=== PATIENT | female | born 1995 | race Caucasian/White ===

== ENCOUNTER 2019-02-12 12:22 | Inpatient (IN) | payer BC ==
[~2019-02-12] VITALS: Ht 162.6 cm; Wt 73.6 kg
[2019-02-12] MEDS ORDERED: PAXIL20 MG PO (12:29)
[2019-02-12] MEDS ORDERED: ATIVAN0.5 MG PO (12:29)
[2019-02-12] MEDS ORDERED: TRI SPRINTEC PO (12:30)
[2019-02-12 13:23] LABS: CALC OSMOLALITY 267 mosm/kg (275-300); CALCIUM 9.1 mg/dL (8.5-10.1); CARBON DIOXIDE 23.4 mmol/L (21.0-32.0); CHLORIDE - SERUM 100 mmol/L (98-107); CREATININE - SERUM 0.8 mg/dL (0.6-1.3); GLUCOSE 109 mg/dL (74-106); POTASSIUM - SERUM 3.3 mmol/L (3.5-5.1); SODIUM 134 mmol/L (136-145); UREA NITROGEN 11 mg/dL (7-18); eGFR NON AFRICAN AMERICAN > 90 mL/min (90-120)
[2019-02-12 13:29] LABS: INR 1.1 (0.85-1.17); PROTIME 13.7 SECONDS (11.6-15.0)
[2019-02-12 13:35] LABS: HEMOGLOBIN 13.2 g/dL (12-16); MCH 28.7 pg (26.0-34.0); MCHC 33.8 g/dL (31.0-37.0); MCV 84.8 fL (80.0-100.0); MEAN PLATELET VOLUME 9.9 fL (7.4-10.4); PLATELET COUNT 343 10x3/uL (130-400); RDW 12.6 % (11.5-14.5); WBC 24.8 10x3/uL (4.8-10.8)
[2019-02-12 13:36] LABS: D-DIMER-QUANTITATIVE 1.13 ug/mLFEU (0.20-0.54)
[2019-02-12 13:40] LABS: ALBUMIN 3.5 g/dL (3.4-5.0); ALKALINE PHOSPHATASE 61 U/L (46-116); ALT (SGPT) 20 U/L (10-68); BILIRUBIN - TOTAL 0.39 mg/dL (0.2-1.3); CKMB 0.7 U/L (0.0-3.6); CREATINE KINASE 38 UL (21-215); PROTEIN - SERUM 8.1 g/dL (6.4-8.2)
[2019-02-12 13:44] LABS: TROPONIN-I < 0.017 ng/mL (0.000-0.060)
--- NOTE | 2019-02-12 13:44 | NUR ---
NOTIFIED BY [facility] OF 1.17 CRITICAL LAB SHEET COMPLETED AND PLACED ON PT'S CHART. EDP NOTIFIED.
[2019-02-12 14:03] LABS: APPEARANCE HAZY (CLEAR); BACTERIA MANY /hpf (NEGATIVE); BILIRUBIN NEGATIVE (NEGATIVE); COLOR YELLOW (YELLOW); EPITHELIAL CELLS 0-5 /hpf (0-5); GLUCOSE NEGATIVE (NEGATIVE); KETONE MODERATE mg/dL (NEGATIVE); NITRITE NEGATIVE (NEGATIVE); PROTEIN TRACE mg/dL (NEGATIVE); RED CELLS - URINE 0-5 /hpf (0-5); SPECIFIC GRAVITY 1.015 (1.005-1.020); UROBILINOGEN NORMAL (NORMAL); WHITE CELLS - URINE 0-5 /hpf (NEGATIVE)
[2019-02-12 14:04] LABS: MUCUS <1+ /lpf (NONE SEEN)
[2019-02-12 14:05] LABS: HCG URINE NEGATIVE (NEGATIVE)
[2019-02-12 14:08] LABS: LYMPHOCYTES 2 % (15-50); MONOCYTES 3 % (2-11); NEUTROPHILS 95 % (40-80); PLATELET ESTIMATE NORMAL; TEAR DROP CELLS OCC
--- NOTE | 2019-02-12 14:45 | NUR ---
PT OUT OF ED AT THIS TIME FOR ORDERED TEST. TRANSPORTED TO MEDICAL IMAGING DEPT. VIA STRETCHER.
--- NOTE | 2019-02-12 14:55 | NUR ---
PT BACK TO ED AT THIS TIME. IV INFUSING ORDERED, NO SIGNS OF INFILTRATION. REPIRATIONS EVEN AND UNLABORED ON RA, NO SIGNS OF DISTRESS. CALL LIGHT IN REACH.
[2019-02-12 15:02] VITALS: BP 115/70
[2019-02-12 18:04] VITALS: BP 122/67; Ht 162.6 cm; Wt 73.6 kg
--- NOTE | 2019-02-12 18:12 | NUR ---
PATIENT IN BED WAITING FOR TRAY TO EAT. WANTS PAIN MEDS AFTER SHE EATS. IV INTACT. ANTIBIOTIC INFUSING. CALL LIGHT WITHIN REACH.
--- NOTE | 2019-02-12 18:50 | NUR ---
PATIENT TEMP 101.9. PAGED ERNIE. WAITING FOR CALL BACK.
[2019-02-12 20:00] VITALS: BP 115/64
--- NOTE | 2019-02-12 20:00 | NUR ---
LYING IN BED. C/O SORE THROAT AND FEVER X2 DAYS. FACE IS FLUSHED BUT PT IS AFEBRILE. C/O H/A RATING 2 ON PAIN SCALE. RESP EVEN AND NONLABORED. TACHYCARDIA NOTED UPON AUSCULTATION. REPORTS DIARRHEA AND VOMITING TODAY. NS @ 125 MLHR INFUSINGIN RT AC WITHOUT DIFF. AMBULATORY. FAMILY AND FRIENDS AT BEDSIDE. CL IN REACH.
--- NOTE | 2019-02-12 21:05 | NUR ---
MEDICATED WITH TYLENOL FOR C/O H/A. CL IN REACH. FAMILY AT BEDSIDE.
--- NOTE | 2019-02-12 21:44 | NUR ---
MEDICATED WITH POTASSIUM PER ELECTROLYTE PROTOCOL. PTS MOTHER STATES THAT PT VOMITED EARLIER. DENIES NAUSEA AT THIS TIME. OFFERED ZOFRAN BUT PT REFUSED. CL IN REACH.
--- NOTE | 2019-02-12 21:50 | NUR ---
SPOKE WITH MARAL BUTTER PRODUCTION SUPERVISOR. NO TELEMETRY AVAILABLE AT THIS TIME
[2019-02-13] VITALS: BP 125/69
--- NOTE | 2019-02-13 02:00 | NUR ---
AWAKE. LYING IN BED. RESP EVEN AND NONLABORED. DENIES NEEDS. NO DISTRESS. FAMILY AT BEDSIDE. CL IN REACH.
[2019-02-13 04:00] VITALS: BP 107/61
--- NOTE | 2019-02-13 04:20 | NUR ---
MEDICATED WITH TYLENOL FOR C/O H/A AND SORE THROAT RATING 7 ON PAIN SCALE. ENCOURAGED PT TO HAVE MD LOOK AT HER THROAT WHEN MAKING ROUNDS TODAY. STATES STREP WAS NEGATIVE AND SHE HAD FLU SWAB AT THE CLINIC BUT DIDNT KNOW THE RESULTS.
[2019-02-13 06:07] LABS: BASOPHILS 0.1 % (0-2); EOSINOPHILS 0 % (0-7); HEMATOCRIT 35.6 % (36.0-48.0); HEMOGLOBIN 11.8 g/dL (12-16); IMMATURE GRANULOCYTES 0.3 % (0-5); LYMPHOCYTES 5.1 % (15-50); MCH 28.2 pg (26.0-34.0); MCHC 33.1 g/dL (31.0-37.0); MCV 85.2 fL (80.0-100.0); MEAN PLATELET VOLUME 9.5 fL (7.4-10.4); MONOCYTES 8.4 % (2-11); NEUTROPHILS 86.1 % (40-80); RBC 4.18 10x6/uL (4.00-5.40); RDW 12.9 % (11.5-14.5); WBC 19.5 10x3/uL (4.8-10.8)
[2019-02-13 06:08] LABS: PLATELET COUNT 274 10x3/uL (130-400)
[2019-02-13 06:43] LABS: ALBUMIN 2.9 g/dL (3.4-5.0); ALKALINE PHOSPHATASE 55 U/L (46-116); ALT (SGPT) 20 U/L (10-68); BILIRUBIN - TOTAL 0.29 mg/dL (0.2-1.3); CALC OSMOLALITY 271 mosm/kg (275-300); CALCIUM 8.5 mg/dL (8.5-10.1); CARBON DIOXIDE 23.6 mmol/L (21.0-32.0); CHLORIDE - SERUM 104 mmol/L (98-107); CREATININE - SERUM 0.7 mg/dL (0.6-1.3); GLUCOSE 101 mg/dL (74-106); MAGNESIUM - SERUM 1.6 mg/dL (1.8-2.4); POTASSIUM - SERUM 3.6 mmol/L (3.5-5.1); PROTEIN - SERUM 6.8 g/dL (6.4-8.2); SODIUM 137 mmol/L (136-145); eGFR NON AFRICAN AMERICAN > 90 mL/min (90-120)
[2019-02-13 06:44] LABS: UREA NITROGEN 6 mg/dL (7-18)
--- NOTE | 2019-02-13 07:36 | NUR ---
ALERT AND ORIENTED. LUNGS CLEAR BILATERALLY. HEART SOUNDS S1 AND S2 HEARD IN ALL ZAMBRANO. BOWEL SOUNDS ACTIVE X 4. SKIN INTACT WITHOUT REDNESS. IV TO RIGHT AC PATENT WITHOUT REDNESS. DENIES PAIN. DENIES NEEDS. MOM AT BEDSIDE. BED LOW. CALL HARRY AND PERSONAL ITEMS IN REACH. WILL CONTINUE TO MONITOR.
--- NOTE | 2019-02-13 08:02 | NUR ---
SPOKE WITH LAUREN, HISTORIC PRESERVATIONIST, TO GET TELEMETRY FOR PATIENT. STATES NONE AVAILABLE.
[2019-02-13 08:42] VITALS: BP 124/67
[2019-02-13 13:23] VITALS: BP 126/74
[2019-02-13 14:26] LABS: MONO NEGATIVE (NEGATIVE)
[2019-02-13 14:34] LABS: UDS - AMPHET NEGATIVE QUAL (NEGATIVE); UDS - BARB NEGATIVE QUAL (NEGATIVE); UDS - BENZO NEGATIVE QUAL (NEGATIVE); UDS - COCAINE NEGATIVE QUAL (NEGATIVE); UDS - OPIATE POSITIVE QUAL (NEGATIVE); UDS - PCP NEGATIVE QUAL (NEGATIVE); UDS - THC NEGATIVE QUAL (NEGATIVE)
--- NOTE | 2019-02-13 14:51 | NUR ---
CALLED LAB FOR THROAT CULTURE SWAB.
[2019-02-13 16:45] VITALS: BP 125/73
--- NOTE | 2019-02-13 18:49 | NUR ---
RESTING IN BED. DENIES NEEDS. BED LOW. CALL HARRY AND PERSONAL ITEMS IN REACH. FAMILY AT BEDSIDE.
--- NOTE | 2019-02-13 19:35 | NUR ---
LYING IN BED. ALERT AND ORIENTED X4. RESP EVEN AND NONLABORED. STATES SHE STILL HAS A SORE THROAT BUT IS FEELING MUCH BETTER. TELEMETRY SHOWS SR WITH RATE OF 80S. NO N/V/D. NS @ 125 MLHR INFUSING IN RT AC WITHOUT DIFF. NO EDEMA NOTED. REFUSES SCDS. NO DISTRESS. MOTHER AT BEDSIDE. SR ELEVATED X2. CL IN REACH.
[2019-02-13 20:00] VITALS: BP 126/84
--- NOTE | 2019-02-13 21:20 | NUR ---
MEDICATED WITH TYLENOL FOR C/O SORE THROAT. CL IN REACH.
[2019-02-14 01:02] VITALS: BP 129/72
[2019-02-14 05:08] VITALS: BP 116/65
--- NOTE | 2019-02-14 07:16 | NUR ---
ALERT AND ORIENTED. LUNGS CLEAR BILATERALLY. HEART SOUNDS S1 AND S2 HEARD IN ALL ZAMBRANO. BOWEL SOUNDS ACTIVE X 4. SKIN INTACT WITHOUT REDNESS. IV TO RIGHT AC PATENT WITHOUT REDNESS. TONSILS APPEAR SWOLLEN AND RED WITH WHITE PATCHES. THROAT CULTURE PENDING. DENIES PAIN. DENIES NEEDS. BED LOW. CALL HARRY AND PERSONAL ITEMS IN REACH. TELEMETRY IN PLACE RUNNING 81 NORMAL SINUS. WILL CONTINUE TO MONITOR.
[2019-02-14 07:25] LABS: CALC OSMOLALITY 275 mosm/kg (275-300); CALCIUM 8.3 mg/dL (8.5-10.1); CARBON DIOXIDE 25.4 mmol/L (21.0-32.0); CHLORIDE - SERUM 106 mmol/L (98-107); CREATININE - SERUM 0.6 mg/dL (0.6-1.3); GLUCOSE 99 mg/dL (74-106); MAGNESIUM - SERUM 1.8 mg/dL (1.8-2.4); POTASSIUM - SERUM 3.5 mmol/L (3.5-5.1); SODIUM 140 mmol/L (136-145); eGFR NON AFRICAN AMERICAN > 90 mL/min (90-120)
[2019-02-14 07:28] LABS: UREA NITROGEN 4 mg/dL (7-18)
[2019-02-14 07:48] LABS: HEMATOCRIT 31.5 % (36.0-48.0); HEMOGLOBIN 10.9 g/dL (12-16); LYMPHOCYTES 13.6 % (15-50); MCH 29.3 pg (26.0-34.0); MCHC 34.6 g/dL (31.0-37.0); MCV 84.7 fL (80.0-100.0); MEAN PLATELET VOLUME 9.9 fL (7.4-10.4); NEUTROPHILS 75.2 % (40-80); PLATELET COUNT 224 10x3/uL (130-400); RBC 3.72 10x6/uL (4.00-5.40); RDW 12.6 % (11.5-14.5)
[2019-02-14 07:52] LABS: WBC 11.4 10x3/uL (4.8-10.8)
[2019-02-14 07:59] VITALS: BP 122/82
--- NOTE | 2019-02-14 10:28 | NUR ---
RESTING IN BED. DENIES NEEDS. WILL CONTINUE TO MONITOR.
[2019-02-14 11:35] VITALS: BP 135/88
--- NOTE | 2019-02-14 12:10 | MORECARE ---
CASE MANAGEMENT DISCHARGE SUMMARY PATIENT: JAVI REYNOLDS UNIT: [id number] ADM DATE: 02/12/19 AGE: 23 : [birth year] SEX: F ROOM/BED: D.2214 AUTHOR: AVNI BRIGHT PHYSICIAN: REFERRING PHYSICIAN: MUSTAPHA MONTIEL MD DATE OF SERVICE: 02/14/19 Discharge Plan Patient Name: JAVI REYNOLDS Facility: [facility]:[place] : 1995 Planned Disposition: Anticipated Discharge Date: Discharge Date: Expected LOS: 0 Initial Reviewer: [email or web address] Initial Review Date: 02/14/2019 Generated: 02/14/19 1:09 pm Comments DCP- Discharge Planning Updated by [email or web address]: Aggie Dunn on 02/14/19 11:[address] Patient Name: JAVI REYNOLDS Admission Status: ER Accout number: [id number] Admission Date: 02-12-2019 : 1995 Admission Diagnosis: Attending: MUSTAPHA FELIPE Current LOS: 2 Anticipated DC Date: Planned Disposition: CM MET WITH PATIENT TO DISCUSS DC PLANNING/NEEDS AFTER OBTAINING VERBAL CONSENT. PLANS TO DC TO HOME. DENIES NEEDS FOR EQUIPMENT, HOME HEALTH OR REHAB. CM TO FOLLOW AND ASSIST NEEDED.. Primary Insurance: [employer] Discharge Planning Comments: Wash Rack Operator: Aggie Dunn DCPIA - Discharge Planning Initial Assessment Updated by [email or web address]: Aggie Dunn on 02/14/19 12:04 pm * Is the patient Alert and Oriented? Yes * PCP [facility] * Pharmacy [facility] * Preadmission Environment Home Alone * ADLs Independent * Additional services required to return to the preadmission environment? No * Can the patient safely return to the preadmission environment? Yes * Has this patient been hospitalized within the prior 30 days at any hospital? No Patient Name: JAVI REYNOLDS Page [phone] at 1210 All edits/amendments must be made on the electronic document DICTATION DATE: 02/14/19 1209 ROUGHER HELPER: MATTHEW 02/14/19 1209 RPT#: [id number] DC DATE: STATUS: ADM IN [facility] [address] [place] [address] END OF REPORT
--- NOTE | 2019-02-14 12:20 | NUR ---
RESTING IN BED. DENIES NEEDS. WILL CONTINUE TO MONITOR.
[2019-02-14 14:09] LABS: EBV - EARLY ANTIGEN AB IGG <9.0 U/mL (0.0-8.9); EBV - NUCLEAR ANTIGEN AB IGG 18.6 U/mL (0.0-17.9); EBV VIRAL CAPSID AB IGM <36.0 U/mL (0.0-35.9)
--- NOTE | 2019-02-14 16:26 | NUR ---
PATIENT STATES WAS SUPPOSED TO BE SWITCHED TO PO ABX. NO ORDERS FOR PO ABX. IV ABX GIVEN.
[2019-02-14 17:22] VITALS: BP 137/97
--- NOTE | 2019-02-14 17:59 | NUR ---
PATIENT IN ROOM CRYING AND ANXIOUS. STATES MOM AND PATIENT DO NOT GET ALONG AND DOES NOT WANT MOM IN ROOM IF PERSONAL QUESTIONS WILL BE ASKED. PRN ATIVAN GIVEN PER REQUEST. MOM LEFT TO GO HOME PER PATIENT'S REQUEST. BOYFRIEND IN ROOM.
--- NOTE | 2019-02-14 18:34 | NUR ---
RESTING IN BED. DENIES NEEDS. BOYFRIEND AT BEDSIDE. BED LOW. CALL HARRY AND PERSONAL ITEMS IN REACH.
--- NOTE | 2019-02-14 19:15 | NUR ---
BEDSIDE REPORT RECEIVED. PATIENT ALERT AND ORIENTED. HOB ELEVATED TO 15 DEGREES. PATIENT HAS PILLOW UNDER LEFT LEG. STATES PAIN AND ANXIETY IS "ALRIGHT" AT THIS TIME. PATIENT SIGINIFICANT OTHER AT BEDSIDE. CURRENTLY INFUSING LEVAQUIN TO THE RIGHT AC. PATIENT WITH NO OXYGEN, ROOM AIR. WEARING TELE MONITOR. REFUSES SCD'S. PATIENT IS UP AD FRANCA. DENIES FURTHER NEEDS AT THIS TIME. CPOC.
--- NOTE | 2019-02-14 19:50 | NUR ---
PHYSICAL ASSESSMENT COMPLETED.
[2019-02-14 20:00] VITALS: BP 132/92
[2019-02-15] VITALS: BP 133/92
--- NOTE | 2019-02-15 03:49 | NUR ---
I have reviewed this patient and I concur with the Shift Assessment completed by the Licensed Practical Nurse today this shift.
[2019-02-15 04:00] VITALS: BP 115/82
[2019-02-15 07:53] LABS: BASOPHILS 0.1 % (0-2); EOSINOPHILS 0.5 % (0-7); HEMATOCRIT 35.9 % (36.0-48.0); HEMOGLOBIN 11.8 g/dL (12-16); IMMATURE GRANULOCYTES 0.3 % (0-5); LYMPHOCYTES 10.7 % (15-50); MCH 28.3 pg (26.0-34.0); MCHC 32.9 g/dL (31.0-37.0); MCV 86.1 fL (80.0-100.0); MEAN PLATELET VOLUME 9.5 fL (7.4-10.4); MONOCYTES 7.9 % (2-11); NEUTROPHILS 80.5 % (40-80); RBC 4.17 10x6/uL (4.00-5.40)
[2019-02-15 07:55] LABS: PLATELET COUNT 288 10x3/uL (130-400); WBC 14.9 10x3/uL (4.8-10.8)
[2019-02-15 08:07] LABS: CALC OSMOLALITY 273 mosm/kg (275-300); CALCIUM 8.8 mg/dL (8.5-10.1); CARBON DIOXIDE 25.9 mmol/L (21.0-32.0); CHLORIDE - SERUM 104 mmol/L (98-107); CREATININE - SERUM 0.6 mg/dL (0.6-1.3); GLUCOSE 88 mg/dL (74-106); MAGNESIUM - SERUM 1.9 mg/dL (1.8-2.4); POTASSIUM - SERUM 3.6 mmol/L (3.5-5.1); SODIUM 139 mmol/L (136-145); UREA NITROGEN 5 mg/dL (7-18); eGFR NON AFRICAN AMERICAN > 90 mL/min (90-120)
[2019-02-15 08:19] VITALS: BP 128/85
[2019-02-15 13:36] LABS: BASOPHILS 0.2 % (0-2); EOSINOPHILS 0.7 % (0-7); HEMATOCRIT 35.9 % (36.0-48.0); HEMOGLOBIN 11.8 g/dL (12-16); IMMATURE GRANULOCYTES 0.4 % (0-5); MCH 28.5 pg (26.0-34.0); MCHC 32.9 g/dL (31.0-37.0); MCV 86.7 fL (80.0-100.0); MEAN PLATELET VOLUME 9.7 fL (7.4-10.4); MONOCYTES 10.5 % (2-11); NEUTROPHILS 72.2 % (40-80); PLATELET COUNT 312 10x3/uL (130-400); RBC 4.14 10x6/uL (4.00-5.40); RDW 12.9 % (11.5-14.5); WBC 12.1 10x3/uL (4.8-10.8)
[2019-02-15] MEDS ORDERED: FLAGYL500 MG PO (13:38)
[2019-02-15] MEDS ORDERED: LEVAQUIN750 MG PO (13:39)
--- NOTE | 2019-02-15 14:02 | NUR ---
SPOKE WITH PT RE FLU SHOT. SHE STATES " I ALREADY HAD MY FLU SHOT".
[2019-02-15 14:29] VITALS: BP 130/86
--- NOTE | 2019-02-15 14:30 | NUR ---
PATIENT RECIEVED DC INSTRUCTIONS. VERBALIZED UNDERSTANDING. NO QUESTIONS AT THIS TIME. IV REMOVED WITH CATH TIP INTACT. ANTIBIOTICS CALLED INTO PHARMACY BY GRACE NOVA. PATIENT GETTING DRESSED. WAITING FOR TRANSPORTATION FOR DC.
--- NOTE | 2019-02-15 15:27 | MORECARE ---
CASE MANAGEMENT DISCHARGE SUMMARY PATIENT: JAVI REYNOLDS UNIT: [id number] ADM DATE: 02/12/19 AGE: 23 : [birth year] SEX: F ROOM/BED: D.2214 AUTHOR: AVNI BRIGHT PHYSICIAN: REFERRING PHYSICIAN: MUSTAPHA MONTIEL MD DATE OF SERVICE: 02/15/19 Discharge Plan Patient Name: JAVI REYNOLDS Facility: [facility]:[place] : 1995 Planned Disposition: Anticipated Discharge Date: Discharge Date: 02/15/2019 Expected LOS: 0 Initial Reviewer: [email or web address] Initial Review Date: 02/14/2019 Generated: 02/15/19 4:27 pm DCP- Discharge Planning Updated by [email or web address]: Aggie Dunn on 02/14/19 11:[address] Patient Name: JAVI REYNOLDS Admission Status: ER Accout number: [id number] Admission Date: 02-12-2019 : 1995 Admission Diagnosis: Attending: MUSTAPHA FELIPE Current LOS: 2 Anticipated DC Date: Planned Disposition: CM MET WITH PATIENT TO DISCUSS DC PLANNING/NEEDS AFTER OBTAINING VERBAL CONSENT. PLANS TO DC TO HOME. DENIES NEEDS FOR EQUIPMENT, HOME HEALTH OR REHAB. CM TO FOLLOW AND ASSIST NEEDED.. Primary Insurance: [employer] Discharge Planning Comments: Disc Pad Grinding Machine Feeder: Aggie Dunn DCPIA - Discharge Planning Initial Assessment Updated by [email or web address]: Aggie Dunn on 02/14/19 12:04 pm * Is the patient Alert and Oriented? Yes * PCP [facility] * Pharmacy [facility] * Preadmission Environment Home Alone * ADLs Independent * Additional services required to return to the preadmission environment? No * Can the patient safely return to the preadmission environment? Yes * Has this patient been hospitalized within the prior 30 days at any hospital? No Last DP export: 02/14/19 11:10 Patient Name: JAVI REYNOLDS Page [phone] at 1527 All edits/amendments must be made on the electronic document DICTATION DATE: 02/15/19 1527 JAVA SCALA DEVELOPER: MATTHEW 02/15/19 1527 RPT#: [id number] DC DATE:02/15/19 STATUS: DIS IN [facility] [address] [place] [address] END OF REPORT
[2019-02-17 22:06] LABS: CHLAMYDIA TRACHOMATIS, NAA Negative (Negative)
== END 2019-02-15 15:16 | disposition home or self-care (01) | DRG 690 ==
LOC: D.ER 12:22 → D.MS 16:17
PROVIDERS: Family Medicine; ADMIT Family Medicine Adult Medicine; ATTEND Family Medicine Adult Medicine
DX: N39.0 Urinary tract infection, site not specified (principal); E87.1 Hypo-osmolality and hyponatremia; R00.0 Tachycardia, unspecified; K52.9 Noninfective gastroenteritis and colitis, unspecified; E87.6 Hypokalemia; J02.9 Acute pharyngitis, unspecified